=== PATIENT | female | born 1945 | race Caucasian/White ===

== ENCOUNTER → 2016-11-14 | Outpatient (CLI) | payer MEDICARE | LOC: GMAL 10:47 | PROVIDERS: ATTEND Family Medicine | DX: M10.00 Idiopathic gout, unspecified site (principal) ==

== ENCOUNTER → 2016-11-27 | Outpatient (CLI) | payer MEDICARE ==
--- NOTE | 2016-11-27 15:55 | MAM ---
EXAM DESCRIPTION: MAMMO BREAST SCREENING BILATERAL CAD, images were reviewed with CAD technology, R2 computer-aided detection. CLINICAL HISTORY: [facility] [employer]. COMPARISON: 2013. FINDINGS: Routine views are obtained. Scattered glandular pattern remains stable. No dominant mass, architectural distortion or clustered microcalcification.. IMPRESSION: Benign exam. BIRAD CATEGORY: 2 BENIGN RECOMMENDATIONS: FOLLOW-UP: Routine screening mammogram in one year. According to the [employer], yearly mammograms are recommended starting at age 40 and continuing as long as a woman is in good health. Any breast change noted on a breast self-exam should be reported promptly to the patient's healthcare provider. Breast MRI is recommended for women with an approximately 20-25% or greater lifetime risk of breast cancer, including women with a strong family history of breast or ovarian cancer and women who have been treated for Hodgkin's disease. Electronically signed by: Carie Barrera 11/27/2016 15:53
== END ==
LOC: MAMMO 14:41
PROVIDERS: ATTEND Family Medicine
DX: Z12.31 Encounter for screening mammogram for malignant neoplasm of breast (principal)
CPT/HCPCS: 77052; G0202

== ENCOUNTER → 2017-05-15 | Outpatient (CLI) | payer MEDICARE | END | disposition home or self-care (01) | LOC: GMAL 11:36 | PROVIDERS: ATTEND Family Medicine | DX: D51.3 Other dietary vitamin B12 deficiency anemia (principal); E55.9 Vitamin D deficiency, unspecified ==

== ENCOUNTER → 2017-05-23 | Outpatient (CLI) | payer MEDICARE ==
--- NOTE | 2017-05-23 15:41 | CT ---
EXAM DESCRIPTION: Abdoment/Pelvis w/o Contrast CLINICAL HISTORY: 71 years, Female, ABD PAIN COMPARISON: None. TECHNIQUE: CT of the abdomen and pelvis is performed according to our non contrast protocol. FINDINGS: The lung bases are clear. Liver, spleen, and pancreas are unremarkable. The right kidney is unremarkable. The left kidney is unremarkable. 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 Also noted in the left ovary is an indeterminate mixed attenuation lesion measuring 3 cm in size. There is no lymphadenopathy, inflammation, or free fluid observed. IMPRESSION: 1. No acute abnormal finding is observed. 2. Indeterminate left ovarian lesion is noted and requires further characterization by ultrasound as per best practice recommendations. Recommendations for Probably benign adnexal cysts on CT and MR:(1)(2) (benign-appearing cysts on non IV-contrast CT or with one or more of the following complicating factors: angulated margins, not round or oval, poorly visualized such as obscured by artifact or low S/N.) Late post-menopause (>5 years from LMP; > 55 years if LMP unknown): <=1 cm: No follow-up imaging recommended >1 cm - <=7 cm: US f/u promptly >7 cm: Consider MR w/IVC or surgical evaluation (1)Recommendations based on the 2013 ACR White Paper for Managing Incidental Adnexal Findings on Abdominal and Pelvic CT and MRI: J Am James Radiol 2013;10:675-681 (2)Excludes normal/benign findings such as ovarian calcifications w/o associated non-calcified mass, corpus luteum cyst, previously characterized cyst and cyst with documented stability in size and appearance for >2 years. This exam was performed according to our departmental dose-optimization program, which includes automated exposure control, adjustment of the mA and/or kV according to patient size and/or use of iterative reconstruction technique. Electronically signed by: Kelvin Montoya MD 05/23/2017 3:39 PM CDT
== END ==
LOC: CT 10:35
PROVIDERS: ATTEND Family Medicine
DX: R10.84 Generalized abdominal pain (principal); N83.8 Other noninflammatory disorders of ovary, fallopian tube and broad ligament

== ENCOUNTER → 2017-05-30 | Outpatient (CLI) | payer MEDICARE ==
--- NOTE | 2017-05-30 11:12 | US ---
EXAM DESCRIPTION: Pelvis Transvaginal CLINICAL HISTORY: L OVARIAN CYST. five, para five. Four sections. Post menopausal COMPARISON: CT scan of the abdomen and pelvis 05/23/2017. TECHNIQUE: Transpelvic scanning through the urine filled bladder, Endovaginal scanning; color Doppler and two-dimensional modes. Technically difficult transpelvic scanning due to skin surgical scarring and lack of bladder filling. FINDINGS: Uterine didelphys. The right uterine horn measures 5.6 x 3.3 x 2.9 cm. Endometrial thickness is 5.4 mm. The myometrium appears homogeneous. The left uterine horn measures 5.1 x 3.0 x 2.8 cm. Endometrial thickness is 2.9 mm. The myometrium appears homogeneous. The cervix is unremarkable. The cul-de-sac contains moderate fluid. Right ovary not well seen. Minimal free fluid in the adnexa. Left ovary difficult to visualize; measures 3.2 x 3.1 x 2.7 cm 13.9 mL. Cannot demonstrate Doppler vascularity. Heterogeneous echoes. No follicles or cysts. No adnexal mass or free fluid. IMPRESSION: 1. Uterine didelphys. Minimally thickened endometrium in the right uterine horn. Homogeneous myometrium in both horns. Normal thickness left uterine horn. Moderate fluid in the cul-de-sac. 2. Left ovary is slightly enlarged. Inhomogeneous echoes. No cysts or large calcifications. Difficult to visualize as discussed above. Considering appearance on CT scan and difficult visualization on this study, consider MRI of the pelvis without and with gadolinium IV contrast. Right ovary was not visualized. Minimal fluid in the right adnexa. Electronically signed by: Lavon Peña MD 05/30/2017 11:11 AM CDT Workstation: [id number]
== END | disposition home or self-care (01) ==
LOC: US 08:21
PROVIDERS: ATTEND Family Medicine
DX: N83.292 Other ovarian cyst, left side (principal)

== ENCOUNTER → 2017-06-03 | Outpatient (CLI) | payer MEDICARE | END | disposition home or self-care (01) | LOC: LAB.O 09:20 | PROVIDERS: ATTEND Family Medicine | DX: R74.0 Nonspecific elevation of levels of transaminase and lactic acid dehydrogenase [LDH] (principal) ==

== ENCOUNTER → 2017-06-04 | Outpatient (CLI) | payer MEDICARE ==
--- NOTE | 2017-06-05 08:30 | MRI ---
EXAM DESCRIPTION: MRI pelvis without and with contrast CLINICAL HISTORY: Ovarian cyst. Abnormal sonogram and CT COMPARISON: Sonogram 05/30/[address] 05/23/2017 TECHNIQUE: Multiplanar, multisequence MR images of the pelvis, pre and post intravenous gadolinium FINDINGS: Unilocular fluid signal intensity well circumscribed simple cyst left ovary 2.8 x 2.1 x 1.8 cm. The remainder of the left ovary is normal. Normal atrophic right ovary Didelphys uterus. A couple of subcentimeter myometrial uterine fibroids in the left horn 7 mm in greatest dimension. No endometrial mass lesion. No mass lesion of the cervix or vagina No abnormality the urinary bladder. Small and large intestine within the pelvis are normal No bony or muscle abnormality IMPRESSION: Unilocular 2.8 cm in greatest dimension simple cyst left ovary almost certainly benign. No imaging follow-up recommended Didelphys uterus Electronically signed by: William Castillo MD 06/05/2017 8:28 AM CDT
== END | disposition home or self-care (01) ==
LOC: MRI 07:54
PROVIDERS: ATTEND Family Medicine
DX: N83.202 Unspecified ovarian cyst, left side (principal)

== ENCOUNTER → 2017-07-22 | Outpatient (CLI) | payer MEDICARE | END | disposition home or self-care (01) | LOC: LAB.O 09:34 | PROVIDERS: ATTEND Student in an Organized Health Care Education/Training Program | DX: I12.9 Hypertensive chronic kidney disease with stage 1 through stage 4 chronic kidney disease, or unspecified chronic kidney disease (principal); N39.0 Urinary tract infection, site not specified; E55.9 Vitamin D deficiency, unspecified; N18.4 Chronic kidney disease, stage 4 (severe); N25.81 Secondary hyperparathyroidism of renal origin ==

== ENCOUNTER → 2017-11-12 | Outpatient (CLI) | payer MEDICARE | END | disposition home or self-care (01) | LOC: GMAL 10:44 | PROVIDERS: ATTEND Family Medicine | DX: E55.9 Vitamin D deficiency, unspecified (principal) ==

== ENCOUNTER → 2017-12-02 | Outpatient (CLI) | payer MEDICARE ==
--- NOTE | 2017-12-02 20:21 | US ---
EXAM DESCRIPTION: Breast,Left: Ultrasound CLINICAL HISTORY: 72 yearsFemaleBREAST LUMP. Lower inner quadrant left breast. Pain behind left nipple. COMPARISON: Digital 3-D tomosynthesis diagnostic mammography bilateral breast on this visit. TECHNIQUE: Transcutaneous scanning of the lower inner quadrant of the left breast utilizing two-dimensional and Doppler modes. Scanning performed by the aluminum siding mechanic and Dr. Peña. FINDINGS: Heterogeneous fibroglandular and tissues are noted. Echogenic homogeneous subcutaneous mass immediately underneath the skin surface with minimal vascularity. This corresponds to a palpable lesion. Dimensions are 1.1 x 1.0 cm. Small rim of hypoechogenicity. Parallel orientation. No distinct posterior features. Most likely a subcutaneous duct or Glandular tissue, or lymph node. No fluid collection other discrete solid mass or calcification. IMPRESSION: 1. Bi-Rads Category 2: Benign. 2. Please refer to bilateral 3-D tomosynthesis diagnostic mammographic examination and report on this visit. The FINDINGS and the follow-up plan were reviewed in person with the patient after the examination. Written communication explaining the IMPRESSION and follow-up will be mailed to the patient and referring care provider. Electronically signed by: Lavon Peña MD 12/02/2017 8:20 PM [employer] Workstation: [id number]
--- NOTE | 2017-12-03 08:46 | MAM ---
EXAM DESCRIPTION: 3D Diagnostic, Bilateral: Digital Mammography CLINICAL HISTORY: 72 yearsFemaleUNSPECIFIED LUMP IN LEFT BREAST . Feels lump under the skin lower inner quadrant mid left breast. No family history breast cancer. Postmenopausal. No HRT. COMPARISON: 2-D digital screening bilateral study 11/27/2016 and 10/06/2014. Targeted left breast ultrasound following this examination. Report from prior examination also reviewed. TECHNIQUE: Bilateral CC LM MLO projection full-field images, 3-D tomosynthesis digital mammographic technique. Also bilateral synthesized CC MLO LM full-field images. CAD not utilized. Skin marker placed on the lower inner quadrant of the left breast were technologist palpated mass. FINDINGS: The breast parenchymal density pattern is: Scattered areas of fibroglandular density. No skin thickening or nipple retraction skin marker at the 800 clock position of the middle third of the left breast. No mammographic abnormality corresponding to the skin marker. Bilateral vascular calcifications. Retroareolar intramammary lymph node right breast is stable. No focal, stellate mass or density, focal asymmetry , and no suspicious microcalcifications bilaterally. ULTRASOUND: Scanning lower inner quadrant left breast. Heterogeneous fibroglandular and tissues are noted. Echogenic homogeneous subcutaneous mass immediately underneath the skin surface with minimal vascularity. This corresponds to a palpable lesion. Dimensions are 1.1 x 1.0 cm. Small rim of hypoechogenicity. Parallel orientation. No distinct posterior features. Most likely a subcutaneous duct or Glandular tissue, or lymph node. No fluid collection other discrete solid mass or calcification. IMPRESSION: BI-RADS CATEGORY: 2 - BENIGN FINDINGS. FOLLOW UP: Return to routine digital bilateral screening, one year interval from November 2017. Written communication explaining the IMPRESSION and follow-up, will be mailed to the patient and referring health care provider. According to the [employer], yearly mammograms are recommended starting at age 40 and continuing as long as a woman is in good health. Any breast change noted on a breast self-exam should be reported promptly to the patient's healthcare provider. Breast MRI is recommended for women with an approximately 20-25% or greater lifetime risk of breast cancer, including women with a strong family history of breast or ovarian cancer and women who have been treated for Hodgkin's disease. A negative mammographic report should not delay tissue diagnosis in patients with significant clinical history or physical findings. Extremely dense breast tissue limits the sensitivity of digital mammography. Electronically signed by: Lavon Peña MD 12/03/2017 8:45 AM [facility]
== END ==
LOC: MAMMO 12:38
PROVIDERS: ATTEND Student in an Organized Health Care Education/Training Program
DX: R92.8 Other abnormal and inconclusive findings on diagnostic imaging of breast (principal); N63.20 Unspecified lump in the left breast, unspecified quadrant; I12.9 Hypertensive chronic kidney disease with stage 1 through stage 4 chronic kidney disease, or unspecified chronic kidney disease; N18.4 Chronic kidney disease, stage 4 (severe)
CPT/HCPCS: 36415; 76641; 77066; 80048; 81001; 82306; 83540; 83550; 83735; 83970; 85025; 87086; G0279

== ENCOUNTER → 2018-07-10 | Outpatient (CLI) | payer MEDICARE | LOC: LAB.NP 09:42 | PROVIDERS: ATTEND Student in an Organized Health Care Education/Training Program | DX: N18.4 Chronic kidney disease, stage 4 (severe) (principal); I10 Essential (primary) hypertension; N25.81 Secondary hyperparathyroidism of renal origin; E55.9 Vitamin D deficiency, unspecified; N39.0 Urinary tract infection, site not specified; D63.1 Anemia in chronic kidney disease ==

== ENCOUNTER → 2018-08-04 | Outpatient (CLI) | payer MEDICARE ==
--- NOTE | 2018-08-04 16:28 | CT ---
EXAM DESCRIPTION: Head CLINICAL HISTORY: HEADACHE COMPARISON: None available TECHNIQUE: Noncontrast head CT was performed with routine protocol. FINDINGS: Normal vallejo-white matter differentiation. Ventricles and sulci are prominent consistent with age-related cerebral volume loss. Low density in the white matter is consistent with chronic microvascular ischemic changes. No high density hemorrhage, focal edema or shift of the midline. No sulcal effacement. Normal orbital contents. Basilar cisterns appear clear. Intact calvarium with no fracture or lytic lesion. Normal aeration of tympanic cavities and mastoid air cells. No fluid levels in the paranasal sinuses. Skull base appears intact. Symmetrical internal auditory canals. IMPRESSION: No acute intracranial pathologic process. This exam was performed according to our departmental dose-optimization program, which includes automated exposure control, adjustment of the mA and/or kV according to patient size and/or use of iterative reconstruction technique. Total DLP equals 752.48 mGycm. Electronically signed by: Serjio Elizabeth MD 08/04/2018 4:26 PM CDT
== END ==
LOC: CT 15:43
PROVIDERS: ATTEND Family Medicine
DX: G44.209 Tension-type headache, unspecified, not intractable (principal)

== ENCOUNTER 2018-08-06 18:09 | Emergency (ER) | payer MEDICARE ==
[2018-08-06] MEDS ORDERED: SODIUM CHLORIDE 0.9% 1000ML 1,000 ML IVS ONE ×2 (18:28→20:41)
--- NOTE | 2018-08-06 18:32 | ED.PDOC ---
History of Present Illness - General Chief Complaint: Blood Pressure Problem Stated Complaint: Dizziness, low BP Time Seen by Provider: 08/06/18 18:22 Source: patient Exam Limitations: no limitations - History of Present Illness Initial Comments: Pt was in restarant and began hAVING LOW BACK PAIN. She left to go to car and began feeling dizzy. 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: moderate Improving Factors: other - lying down Worsening Factors: other - standing Associated Symptoms: denies symptoms Allergies/Adverse Reactions: Allergies NO KNOWN ALLERGY Allergy (Verified 05/04/16 19:50) Home Medications: Ambulatory Orders Acetaminophen W/ Codeine [Tylenol W/ CODEINE #3] 1 ea PO Q4H 05/04/16 Allopurinol [Zyloprim] 100 mg PO DAILY 05/04/16 Amiodarone HCl 200 mg PO DAILY 05/04/16 Amlodipine Besylate-Atorvastat [Amlodipine Besylate/Atorv] 10 tab PO DAILY 05/04 Ergocalciferol [Vitamin D] 50,000 unit PO DAILY 05/04/16 Losartan Potassium 100 mg PO DAILY 05/04/16 Omeprazole 20 mg PO DAILY PRN 05/04/16 Terazosin [Hytrin] 5 mg PO DAILY 05/04/16 Tramadol HCl 50 mg PO Q4H PRN 05/04/16 Verapamil HCl 120 mg PO DAILY 05/04/16 diphenhydrAMINE HCL [Benadryl] 50 mg PO BEDTIME 05/04/16 Nitrofurantoin Monohydrate Mac [Macrobid] 100 mg PO BID #20 capsule 08/06/18 Promethazine Tab [Phenergan Tablet] 25 mg PO .Q4H PRN #20 tab 08/06/18 Review of Systems - Review of Systems Constitutional: Denies: chills, fever, weakness EENTM: States: no symptoms reported Respiratory: States: no symptoms reported. Denies: short of breath Cardiology: Denies: chest pain, palpitations, syncope Gastrointestinal/Abdominal: Denies: abdominal pain, diarrhea, nausea Genitourinary: Denies: dysuria, frequency Musculoskeletal: States: back pain Skin: States: no symptoms reported Neurological: Denies: headache, numbness, paresthesia Endocrine: Denies: no symptoms reported Past Medical History (General) - Patient Medical History Hx Seizures: No Hx Stroke: No Hx Dementia: No Hx Asthma: No Hx of COPD: No Hx Cardiac Disorders: Yes - A-Fib Hx Congestive Heart Failure: No Hx Pacemaker: No Hx Hypertension: Yes Hx Thyroid Disease: No Hx Diabetes: No Hx Gastroesophageal Reflux: No Hx Renal Disease: Yes - 35% renal function Hx Cancer: No Hx of HIV: No Hx Hepatitis C: No Hx MRSA: No - Vaccination History Hx Tetanus, Diphtheria Vaccination: Yes Hx Influenza Vaccination: Yes Hx Pneumococcal Vaccination: No - Social History Hx Tobacco Use: No Hx Chewing Tobacco Use: No Hx Alcohol Use: No Hx Substance Use: No Hx Substance Use Treatment: No Hx Depression: No Hx Physical Abuse: No Hx Emotional Abuse: No Hx Suspected Abuse: No - Female History Patient : No Family Medical History - Family History Mother Age (years): 70 Living Status: Hx Family Cancer: Yes Physical Exam - Physical Exam General Appearance: Alert, Anxious, Comfortable Eye Exam: bilateral normal Ears, Nose, Throat: hearing grossly normal, normal ENT inspection, normal pharynx - dry mucosa Neck: non-tender, full range of motion, supple Respiratory: chest non-tender, lungs clear, normal breath sounds, no respiratory distress Cardiovascular/Chest: normal peripheral pulses, regular rate, rhythm, no edema Gastrointestinal/Abdominal: normal bowel sounds, non tender, soft Extremity: normal range of motion, non-tender, normal inspection, no pedal edema , no calf tenderness Neurologic: alert, normal mood/affect, oriented x 3 Skin Exam: normal color, warm/dry Progress - EKG/XRAY/CT EKG: Sinus - with first degree AV block, RBBB, Abnormal Q waves - inferiorly Comments: Rate 62, CA 212, QRS 134 Departure - Departure Clinical Impression: Near syncope, Orthostatic hypotension, Dehydration Chronic kidney disease Qualifiers: Chronic kidney disease stage: unspecified stage Qualified Code(s): N18.9 - Chronic kidney disease, unspecified UTI (urinary tract infection) Qualifiers: Urinary tract infection type: acute cystitis Hematuria presence: without hematuria Qualified Code(s): N30.00 - Acute cystitis without hematuria Disposition: Discharge to Home or Self Care Departure Forms: ED Discharge - Pt. Copy, Patient Portal Self Enrollment Instructions: DI for High Blood Pressure Referrals: Tung Polanco III, MD [Primary Care Provider] - 1-2 Weeks Prescriptions: Nitrofurantoin Monohydrate Mac [Macrobid] 100 mg PO BID #20 capsule Promethazine Tab [Phenergan Tablet] 25 mg PO .Q4H PRN #20 tab PRN Reason: Nausea Home Medications: Ambulatory Orders Acetaminophen W/ Codeine [Tylenol W/ CODEINE #3] 1 ea PO Q4H 05/04/16 Allopurinol [Zyloprim] 100 mg PO DAILY 05/04/16 Amiodarone HCl 200 mg PO DAILY 05/04/16 Amlodipine Besylate-Atorvastat [Amlodipine Besylate/Atorv] 10 tab PO DAILY 05/04 Ergocalciferol [Vitamin D] 50,000 unit PO DAILY 05/04/16 Losartan Potassium 100 mg PO DAILY 05/04/16 Omeprazole 20 mg PO DAILY PRN 05/04/16 Terazosin [Hytrin] 5 mg PO DAILY 05/04/16 Tramadol HCl 50 mg PO Q4H PRN 05/04/16 Verapamil HCl 120 mg PO DAILY 05/04/16 diphenhydrAMINE HCL [Benadryl] 50 mg PO BEDTIME 05/04/16 Nitrofurantoin Monohydrate Mac [Macrobid] 100 mg PO BID #20 capsule 08/06/18 Promethazine Tab [Phenergan Tablet] 25 mg PO .Q4H PRN #20 tab 08/06/18
[2018-08-06] MEDS ORDERED: cefTRIAXone SODIUM 1 GM in SODIUM CHL 0.9% 50ML MIN-BAG+ 50 ML IVPB ONE (19:49)
[2018-08-06] MEDS ORDERED: SODIUM CHL 0.9% 50ML MIN-BAG+ 50 ML IVPB ONE (19:55)
[2018-08-06] MEDS ORDERED: cefTRIAXone SODIUM 1 GM VIAL ONE (19:55)
[2018-08-06 20:05] VITALS: TEMP 97.2
[2018-08-06 22:24] VITALS: BP 142/69; O2SAT 97
== END 2018-08-06 22:25 | disposition home or self-care (01) ==
LOC: ER 18:09
DX: R55 Syncope and collapse (principal); N30.00 Acute cystitis without hematuria; I95.1 Orthostatic hypotension; E86.0 Dehydration; N18.9 Chronic kidney disease, unspecified; I12.9 Hypertensive chronic kidney disease with stage 1 through stage 4 chronic kidney disease, or unspecified chronic kidney disease; M54.5 Low back pain; I48.91 Unspecified atrial fibrillation; Z79.899 Other long term (current) drug therapy
CPT/HCPCS: 36415; 80053; 81001; 85025; 87086; 93005; J0696; J7030; J7050

== ENCOUNTER → 2018-08-11 | Outpatient (CLI) | payer MEDICARE | LOC: GMAL 10:53 | PROVIDERS: ATTEND Family Medicine | DX: D51.3 Other dietary vitamin B12 deficiency anemia (principal); E55.9 Vitamin D deficiency, unspecified ==

== ENCOUNTER → 2018-08-20 | Outpatient (CLI) | payer MEDICARE | LOC: GMAL 14:43 | PROVIDERS: ATTEND Family Medicine | DX: N39.0 Urinary tract infection, site not specified (principal) ==

== ENCOUNTER → 2018-11-12 | Outpatient (CLI) | payer MEDICARE | LOC: GMAL 12:42 | PROVIDERS: ATTEND Family Medicine | DX: D51.3 Other dietary vitamin B12 deficiency anemia (principal) ==

== ENCOUNTER → 2018-12-31 | Outpatient (CLI) | payer MEDICARE | LOC: LAB.O 10:34 | PROVIDERS: ATTEND Student in an Organized Health Care Education/Training Program | DX: I12.9 Hypertensive chronic kidney disease with stage 1 through stage 4 chronic kidney disease, or unspecified chronic kidney disease (principal); N18.4 Chronic kidney disease, stage 4 (severe) ==

== ENCOUNTER → 2019-01-16 | Outpatient (CLI) | payer MEDICARE ==
--- NOTE | 2019-01-16 12:58 | US ---
EXAM DESCRIPTION: Renal: Ultrasound. CLINICAL HISTORY: 73 years Female CHRONIC KIDNEY DISEASE COMPARISON: Bilateral renal arterial Doppler evaluation on the same visit. TECHNIQUE: Transcutaneous scanning: Two-dimensional and Doppler modes. FINDINGS: Right kidney measures 7.9 x 5.4 x 4.2 cm; mid-renal cortical thickness 11 mm. . Age-related echogenicity, less than that of the liver with prominent renal pyramids. No hydronephrosis No echogenic stones. Lobulated contour of the kidney with no perinephric fluid. Doppler interrogation was not performed.. Proximal ureter not visualized. Left kidney measures 7.7 x 4.9 x 4.1 cm; mid-renal cortical thickness 10 mm.. Age-related echogenicity, less than that of the liver with prominent renal pyramids. No hydronephrosis. No echogenic stones. Lobulated contour of the kidney with no perinephric fluid. Doppler interrogation was not performed.. Proximal ureter not visualized. Urinary bladder not visualized. Abdominal aorta: not measured. IMPRESSION: Bilateral kidneys small with moderate cortical loss and lobulated capsules. Echogenicity related to aging but more hypoechoic than the liver. No hydronephrosis or perirenal fluid and proximally ureters were not visualized. Electronically signed by: Lavon Peña MD 01/16/2019 12:54 PM CDT
== END ==
LOC: US 08:53
PROVIDERS: ATTEND Student in an Organized Health Care Education/Training Program
DX: I12.9 Hypertensive chronic kidney disease with stage 1 through stage 4 chronic kidney disease, or unspecified chronic kidney disease (principal); N18.4 Chronic kidney disease, stage 4 (severe)

== ENCOUNTER → 2019-04-29 | Outpatient (CLI) | payer MEDICARE ==
--- NOTE | 2019-04-30 09:34 | US ---
US THYROID CLINICAL STATEMENT: Other specified nontoxic goiter. No palpable mass. No prior thyroid surgery or therapy. COMPARISON: None TECHNIQUE: Transcutaneous scanning, grayscale and Doppler modes. FINDINGS: Size right thyroid lobe: 4.7 x 2.5 x 1.9 cm Size left thyroid lobe: 4.2 x 2.2 x 1.8 cm Size isthmus: 0.27 cm Estimated total number of nodules greater than or equal to 1 cm: 2. Nodule 1: Size: 1.4 x 1.1 x 1.0 cm Location: Right Mid Composition: solid or almost completely solid: 2 points Echogenicity: hypoechoic: 2 points Shape: wider than tall: 0 points Margins: smooth: 0 points Echogenic foci: none: 0 points ACR Total Points: 4; ACR TI-RADS risk category: TR4 - moderately suspicious nodule. Nodule 2: Size: 1.2 x 1.1 x 0.9 cm Location: Left Lower Composition: solid or almost completely solid: 2 points Echogenicity: hypoechoic: 2 points Shape: wider than tall: 0 points Margins: smooth: 0 points Echogenic foci: none: 0 points. ACR Total Points: 4; ACR TI-RADS risk category: TR4 - moderately suspicious nodule. Nodule 3: Size: 0.8 x 0.4 x 0.4 cm Location: Left Lower Composition: solid or almost completely solid: 2 points Echogenicity: hypoechoic: 2 points Shape: wider than tall: 0 points Margins: smooth: 0 points Echogenic foci: none: 0 points ACR Total Points: 4; ACR TI-RADS risk category: TR4 - moderately suspicious nodule. Nodule 4: Size: 0.8 x 0.7 x 0.5 cm Location: Right Lower Composition: spongiform: 0 points Echogenicity: hypoechoic: 2 points Shape: wider than tall: 0 points Margins: smooth: 0 points Echogenic foci: none: 0 points ACR Total Points: 2; ACR TI-RADS risk category: TR2 - nonsuspicious nodule. The soft tissue around the thyroid gland show no evidence of distinct cyst or dominant solid mass. No parenchymal edema or large calcifications. IMPRESSION: 1. Nodule 1: ACR TI-RADS 2017 Category TR4. Recommend: Follow-up ultrasound in 1 year.. Recommendations based upon [employer] Best Practice recommendations and ACR TI-RADS 2017 guidelines. Please see below*. 2. Nodule 2: ACR TI-RADS 2017 Category TR4. Recommend: Follow-up ultrasound in 1 year. 3. Nodule 3: ACR TI-RADS 2017 Category TR4. Recommend: No further follow-up. 4. Nodule 4: ACR TI-RADS 2017 Category TR2. Recommend: No further follow-up. 5. Soft tissue around the thyroid gland is unremarkable. *ACR TI-RADS 2017 Recommendations: TR1: No FNA or follow up TR2: No FNA or follow up TR3: FNA if >/= 2.5 cm, follow up if 1.5 - 2.4 cm in 1, 3, and 5 years TR4: FNA if >/= 1.5 cm, follow up if 1.0 - 1.4 cm in 1, 2, 3, and 5 years TR5: FNA if >/= 1.0 cm, follow up if 0.5 - 0.9 cm every year for 5 years ACR TI-RADS recommends that no more than two nodules with the highest ACR TI-RADS total point should be biopsied and no more than four nodules should be followed. These recommendations do not apply to patients with increased risk for thyroid cancer or patients with symptomatic thyroid disease. Electronically signed by: Lavon Peña MD 04/30/2019 9:32 AM CDT
== END ==
LOC: US 15:00
PROVIDERS: ATTEND Family Medicine
DX: E04.2 Nontoxic multinodular goiter (principal)

== ENCOUNTER → 2019-05-12 | Outpatient (CLI) | payer MEDICARE ==
--- NOTE | 2019-05-13 16:54 | MAM ---
EXAM DESCRIPTION: 3D Screening BILATERAL : Digital Mammography. CLINICAL HISTORY: 73 years Female Annual Screening . No complaints. No personal or family history of breast cancer. Childbirth. Postmenopausal. No HRT. Lifetime risk of developing breast cancer (Tyrer-Cuzick model)(%): 3.5. COMPARISON: 2-D digital screening bilateral mammography 11/27/2016. Bilateral diagnostic digital breast tomosynthesis 12/02/2017. TECHNIQUE: Bilateral CC and MLO projection full-field images, digital tomosynthesis mammographic technique. Bilateral digital 2-D full-field MLO images. CAD not available for tomosynthesis or 2-D images. FINDINGS: The breast parenchymal density pattern is: Scattered areas of fibroglandular density. No skin thickening or nipple retraction. Bilateral solitary microcalcifications. Bilateral vascular calcifications. Stable retroareolar focal density right breast. No new focal, stellate mass or density, focal asymmetry , and no suspicious microcalcifications bilaterally. Stable mammograms compared to prior study. Taking into account, differences in mammographic technique. IMPRESSION: Benign exam. BIRAD CATEGORY: 2 BENIGN FINDINGS. RECOMMENDATIONS: FOLLOW UP: Routine digital bilateral mammographic screening, one year interval from May 2019. Written communication explaining the IMPRESSION and follow-up, will be mailed to the patient and referring health care provider. According to the [employer], yearly mammograms are recommended starting at age 40 and continuing as long as a woman is in good health. Any breast change noted on a breast self-exam should be reported promptly to the patient's healthcare provider. Breast MRI is recommended for women with an approximately 20-25% or greater lifetime risk of breast cancer, including women with a strong family history of breast or ovarian cancer and women who have been treated for Hodgkin's disease. A negative mammographic report should not delay tissue diagnosis in patients with significant clinical history or physical findings. Extremely dense breast tissue limits the sensitivity of digital mammography. Electronically signed by: Lavon Peña MD 05/13/2019 4:52 PM CDT
== END ==
LOC: MAMMO 09:30
PROVIDERS: ATTEND Family Medicine
DX: Z12.31 Encounter for screening mammogram for malignant neoplasm of breast (principal)

== ENCOUNTER → 2019-05-25 | Outpatient (CLI) | payer MEDICARE ==
--- NOTE | 2019-05-25 10:29 | US ---
EXAM DESCRIPTION: Renal: Ultrasound. CLINICAL HISTORY: 73 years Female CHRONIC KIDNEY DISEASE STAGE 4 COMPARISON: None. TECHNIQUE: Transcutaneous scanning: Two-dimensional and Doppler modes. FINDINGS: Right kidney measures 8.4 x 4.2 x 4.1 cm; mid-renal cortical thickness 12 mm. . Normal cortical No hydronephrosis No echogenic stones. Mildly lobulated contour of the kidney with no perinephric fluid. Possible subcentimeter cortical cyst. Normal vascularity. Proximal ureter not visualized. Left kidney measures 8.9 x 4.3 cm; mid-renal cortical thickness 11 mm. Normal cortical echogenicity. No hydronephrosis. No echogenic stones. Smooth contour of the kidney with no perinephric fluid. Normal vascularity.. Proximal ureter not visualized. Urinary bladder was visualized and contracted. Volume almost 10 mL. Ureteral jet in the bladder not seen by Doppler. Abdominal aorta: Normal caliber from the proximal segment to the distal bifurcation. IMPRESSION: Bilateral kidneys are small with thin cortex. Right kidney capsule is lobulated. Normal cortical echogenicity. No hydronephrosis, perirenal fluid, or echogenic stones bilaterally. Proximal ureters not visualized. Urinary bladder was contracted and essentially empty. Abdominal aortic caliber is unremarkable. Electronically signed by: Lavon Peña MD 05/25/2019 10:27 AM CDT
== END ==
LOC: US 08:00
PROVIDERS: ATTEND Student in an Organized Health Care Education/Training Program
DX: I12.9 Hypertensive chronic kidney disease with stage 1 through stage 4 chronic kidney disease, or unspecified chronic kidney disease (principal); N18.4 Chronic kidney disease, stage 4 (severe)

== ENCOUNTER → 2019-07-08 | Outpatient (CLI) | payer MEDICARE | LOC: LAB.O 14:44 | PROVIDERS: ATTEND Student in an Organized Health Care Education/Training Program | DX: N18.4 Chronic kidney disease, stage 4 (severe) (principal); I10 Essential (primary) hypertension; E87.8 Other disorders of electrolyte and fluid balance, not elsewhere classified; D63.1 Anemia in chronic kidney disease; N39.0 Urinary tract infection, site not specified; N25.81 Secondary hyperparathyroidism of renal origin; E55.9 Vitamin D deficiency, unspecified ==

== ENCOUNTER → 2019-07-20 | Outpatient (CLI) | payer MEDICARE | LOC: GMAL 14:08 | PROVIDERS: ATTEND Family Medicine | DX: E03.8 Other specified hypothyroidism (principal); I10 Essential (primary) hypertension; E78.49 Other hyperlipidemia ==

== ENCOUNTER → 2020-04-20 | Outpatient (CLI) | payer MEDICARE | LOC: GMAL 10:38 | PROVIDERS: ATTEND Family Medicine | DX: D51.3 Other dietary vitamin B12 deficiency anemia (principal); E55.9 Vitamin D deficiency, unspecified; I10 Essential (primary) hypertension ==

== ENCOUNTER → 2020-08-08 | Outpatient (CLI) | payer MEDICARE | LOC: LAB.O 09:42 | PROVIDERS: ATTEND Student in an Organized Health Care Education/Training Program | DX: I12.9 Hypertensive chronic kidney disease with stage 1 through stage 4 chronic kidney disease, or unspecified chronic kidney disease (principal); N18.4 Chronic kidney disease, stage 4 (severe) ==